=== PATIENT | male | born 1945 | race Hispanic/Latino ===

== ENCOUNTER → 2017-11-11 | Outpatient (CLI) | payer OTHER | END | disposition home or self-care (01) | LOC: RAH 09:18 | PROVIDERS: ATTEND Orthopaedic Surgery | DX: I25.10 Atherosclerotic heart disease of native coronary artery without angina pectoris (principal) | CPT/HCPCS: 93306 ==

== ENCOUNTER → 2017-12-02 | Outpatient (CLI) | payer OTHER | END | disposition home or self-care (01) | LOC: RAH 11:20 | PROVIDERS: ATTEND Orthopaedic Surgery | DX: I48.0 Paroxysmal atrial fibrillation (principal) | CPT/HCPCS: 93005 ==